=== PATIENT | female | born 1990 | race Asian ===

== ENCOUNTER 2022-12-22 18:30 | Inpatient (IN) ==
[~2022-12-22 18:30] MED LIST: LORazepam 2 mg VIAL 1 ml ONE
[2022-12-22] MEDS ORDERED: LORazepam 2 mg VIAL 1 ml IM ONE (18:34)
[2022-12-22] MEDS ORDERED: Haloperidol 5 mg/ml SDV IV/IM 5 MG/ML AMP IM ONE (18:34)
[2022-12-22 19:08] LABS: ABS Basophils 0.1 10^3/uL (0.0-0.1); ABS Eosinophils 0.1 10^3/uL (0.0-0.5); ABS Lymphocytes 2.1 10^3/uL (1.0-4.8); ABS Monocytes 0.3 10^3/uL (0.0-0.9); Eosinophil % 1.1 %; Hematocrit 39.9 % (35-45); Hemoglobin 13.5 g/dL (11.5-14.3); Lymphocyte % 38.5 %; Mean Corpuscular Hemoglobin 30.9 pg (27-33); Mean Corpuscular Hgb Conc 33.8 g/dL (31-36); Mean Corpuscular Volume 91.7 fL (80-97); Platelet Count 333 10^3/uL (150-450); Red Blood Count 4.35 10^6/uL (3.63-4.92); Red Cell Distribution Width 13.2 % (12-17); White Blood Count 5.5 10^3/uL (3.8-11.8)
[2022-12-22 19:29] LABS: ALT 21 U/L (7-52); Albumin 4.2 g/dL (3.2-5.2); Albumin/Globulin Ratio 1.6 (1-3); Alkaline Phosphatase 35 U/L (35-149); Blood Urea Nitrogen 8 mg/dL (6-24); CO2 Carbon Dioxide 21 mmol/L (22-32); Calcium 8.2 mg/dL (8.6-10.3); Chloride 106 mmol/L (101-111); Creatinine, Serum 0.61 mg/dL (0.51-0.95); Globulin 2.7 g/dL (2-4); Glucose 101 mg/dL (70-100); Sodium 140 mmol/L (135-145); Total Bilirubin 1.1 mg/dL (0.2-1.0); Total Protein 6.9 g/dL (6.4-8.9); eGFR CKD-EPI 122.5 (>60)
[2022-12-22 19:31] LABS: AST 38 U/L (13-39); Anion Gap 13 mmol/L (2-16); Potassium 3.6 mmol/L (3.5-5.0)
[2022-12-22 19:45] LABS: HCG Pregnancy < 0.60 mIU/mL
[2022-12-22 20:07] LABS: Acetaminophen < 15 mcg/mL; Alcohol, S 210 mg/dL (<13); Salicylate < 2.50 mg/dL (<30)
[2022-12-22 20:08] LABS: TSH Ultra Thyroid Stim Horm 0.66 mcIU/mL (0.34-5.60)
[2022-12-23 04:28] LABS: Urine Appearance Clear; Urine Bilirubin Negative (Negative); Urine Blood Negative (Negative); Urine Color Yellow; Urine Glucose Negative (Negative); Urine Ketones Negative (Negative); Urine Nitrite Negative (Negative); Urine Protein Negative (Negative); Urine Specific Gravity 1.012 (1.002-1.030); Urine Urobilinogen Negative (Negative)
[2022-12-23 04:48] LABS: Urine Benzodiazepine Screen None Detected (None Detect); Urine Cannabinoids Screen None Detected (None Detect); Urine Opiates Screen None Detected (None Detect)
[2022-12-23] MEDS ORDERED: Al Hydrox/Mg Hydrox/Simet LIQ 30 ML UDC PO PRN (10:10)
[2022-12-25] MEDS ORDERED: Nicotine GUM 2MG FRUIT FLAVOR PO ONE (12:53)
[2022-12-25] MEDS: Nicotine GUM 2MG FRUIT FLAVOR PO PRN ×2 (18:22→23:57)
[2022-12-26] MEDS: Nicotine GUM 2MG FRUIT FLAVOR PO PRN (12:38)
[2022-12-27] MEDS: Nicotine GUM 2MG FRUIT FLAVOR PO PRN (12:34)
[2022-12-28] MEDS: Nicotine GUM 2MG FRUIT FLAVOR PO PRN ×2 (09:28→15:20)
[2022-12-29] MEDS: Nicotine GUM 2MG FRUIT FLAVOR PO PRN ×3 (08:29→15:30)
[2022-12-30] MEDS: Nicotine GUM 2MG FRUIT FLAVOR PO PRN ×2 (08:41→13:25)
[2022-12-31] MEDS: Nicotine GUM 2MG FRUIT FLAVOR PO PRN ×2 (08:32→12:34)
[2023-01-01] MEDS: Nicotine GUM 2MG FRUIT FLAVOR PO PRN ×2 (08:50→12:29)
[2023-01-02] MEDS: Nicotine GUM 2MG FRUIT FLAVOR PO PRN (08:46)
[2023-01-02] MEDS ORDERED: Haloperidol 5 mg/ml SDV IV/IM 5 MG/ML AMP IM PRN (10:58)
[2023-01-03] MEDS: Nicotine GUM 2MG FRUIT FLAVOR PO PRN (08:35)
[2023-01-04] MEDS: Nicotine GUM 2MG FRUIT FLAVOR PO PRN ×2 (08:39→15:01)
[2023-01-05] MEDS: Nicotine GUM 2MG FRUIT FLAVOR PO PRN (09:07)
[2023-01-06] MEDS: Nicotine GUM 2MG FRUIT FLAVOR PO PRN (09:30)
[2023-01-07] MEDS: Nicotine GUM 2MG FRUIT FLAVOR PO PRN ×2 (04:28→09:13)
[2023-01-07] MEDS ORDERED: Paliperidone SUSTENNA 234 MG/1.5 ML IM ONE (12:06)
[2023-01-08] MEDS: Nicotine GUM 2MG FRUIT FLAVOR PO PRN ×2 (08:52→12:38)
[2023-01-09] MEDS: Nicotine GUM 2MG FRUIT FLAVOR PO PRN ×3 (08:46→17:40)
[2023-01-10] MEDS: Nicotine GUM 2MG FRUIT FLAVOR PO PRN ×2 (08:45→12:51)
[2023-01-10] MEDS ORDERED: Paliperidone SUSTENNA 156 MG/1 ML IM ONE (09:00)
[2023-01-11] MEDS: Nicotine GUM 2MG FRUIT FLAVOR PO PRN ×2 (08:46→13:13)
[2023-01-11 09:32] VITALS: BP 104/71
== END 2023-01-11 15:10 | disposition home or self-care (01) | DRG 885 ==
LOC: ED 18:30 → EDHOLD 12-23 10:10 → BSU 12-23 11:49
PROVIDERS: ADMIT Psychiatry & Neurology Psychiatry; ATTEND Psychiatry & Neurology Psychiatry

== ENCOUNTER 2023-01-17 15:28 | Inpatient (IN) ==
[2023-01-17] MEDS ORDERED: Al Hydrox/Mg Hydrox/Simet LIQ 30 ML UDC PO PRN (16:30)
[2023-01-17 17:09] LABS: ABS Basophils 0.1 10^3/uL (0.0-0.1); ABS Eosinophils 0.1 10^3/uL (0.0-0.5); ABS Lymphocytes 1.7 10^3/uL (1.0-4.8); ABS Monocytes 0.4 10^3/uL (0.0-0.9); ABS Neutrophils 4.7 10^3/uL (1.5-7.6); Hematocrit 39.9 % (35-45); Hemoglobin 13.4 g/dL (11.5-14.3); Lymphocyte % 23.9 %; Mean Corpuscular Hemoglobin 30.9 pg (27-33); Mean Corpuscular Hgb Conc 33.6 g/dL (31-36); Mean Platelet Volume 7.4 fL (7.5-11.2); Platelet Count 361 10^3/uL (150-450); Red Blood Count 4.34 10^6/uL (3.63-4.92); Red Cell Distribution Width 12.7 % (12-17)
[2023-01-17 17:32] LABS: Albumin 4.4 g/dL (3.2-5.2); Albumin/Globulin Ratio 1.5 (1-3); Calcium 9.7 mg/dL (8.6-10.3); Creatinine, Serum 0.7 mg/dL (0.51-0.95); Globulin 2.9 g/dL (2-4); Potassium 3.7 mmol/L (3.5-5.0); Total Bilirubin 0.4 mg/dL (0.2-1.0); Total Protein 7.3 g/dL (6.4-8.9); eGFR CKD-EPI 117.8 (>60)
[2023-01-17 17:37] LABS: HCG Pregnancy 1.04 mIU/mL
[2023-01-17 17:54] LABS: Urine Benzodiazepine Screen None Detected (None Detect); Urine Cannabinoids Screen None Detected (None Detect); Urine Opiates Screen None Detected (None Detect)
[2023-01-17 18:11] LABS: TSH Ultra Thyroid Stim Horm 1.17 mcIU/mL (0.34-5.60)
[2023-01-17] MEDS ORDERED: Nicotine GUM 2MG FRUIT FLAVOR PO ONE (18:50)
[2023-01-18] MEDS: Vitamin THERAPEUTIC TAB PO SCH (09:21)
[2023-01-18] MEDS: Nicotine GUM 2MG FRUIT FLAVOR PO PRN (10:41)
[2023-01-19] MEDS: Vitamin THERAPEUTIC TAB PO SCH (08:47)
[2023-01-19] MEDS: Nicotine GUM 2MG FRUIT FLAVOR PO PRN ×2 (08:48→12:23)
[2023-01-20] MEDS: Nicotine GUM 2MG FRUIT FLAVOR PO PRN ×2 (08:56→14:12)
[2023-01-20] MEDS: Vitamin THERAPEUTIC TAB PO SCH (08:56)
[2023-01-21] MEDS: Nicotine GUM 2MG FRUIT FLAVOR PO PRN ×3 (03:57→15:14)
[2023-01-21] MEDS: Vitamin THERAPEUTIC TAB PO SCH (08:47)
[2023-01-22] MEDS: Nicotine GUM 2MG FRUIT FLAVOR PO PRN ×3 (08:45→17:15)
[2023-01-22] MEDS: Vitamin THERAPEUTIC TAB PO SCH (08:45)
[2023-01-23] MEDS: Lithium Carb ER 300 mg TAB(NF) PO SCH (09:11)
[2023-01-23] MEDS: Vitamin THERAPEUTIC TAB PO SCH (09:11)
[2023-01-23] MEDS: Nicotine GUM 2MG FRUIT FLAVOR PO PRN ×2 (09:11→13:01)
[2023-01-24] MEDS: Vitamin THERAPEUTIC TAB PO SCH (08:41)
[2023-01-24] MEDS: Lithium Carb ER 300 mg TAB(NF) PO SCH (08:41)
[2023-01-24] MEDS: Nicotine GUM 2MG FRUIT FLAVOR PO PRN ×2 (08:43→12:35)
[2023-01-24 09:31] VITALS: BP 106/68
== END 2023-01-24 13:55 | disposition home or self-care (01) | DRG 885 ==
LOC: ED 15:28 → EDHOLD 16:30 → BSU 18:30
PROVIDERS: ADMIT Psychiatry & Neurology Psychiatry; ATTEND Psychiatry & Neurology Psychiatry